=== PATIENT | female | born 1960 | race Caucasian/White ===

== ENCOUNTER → 2020-01-14 13:58 | Outpatient (BNVA) | payer BC, SELFPAY | PROVIDERS: Visit Provider Specialist | DX: G40.909 Epilepsy, unspecified, not intractable, without status epilepticus (principal); G24.9 Dystonia, unspecified | CPT/HCPCS: 99203 ==

== ENCOUNTER → 2020-01-22 09:56 | Outpatient (BNVA) | payer BC, SELFPAY | PROVIDERS: PCP Nurse Practitioner Family; Visit Provider Specialist | DX: G56.21 Lesion of ulnar nerve, right upper limb (principal) | CPT/HCPCS: 95910 ==

== ENCOUNTER → 2020-03-11 11:02 | Outpatient (BNVA) | payer BC, SELFPAY | PROVIDERS: PCP Nurse Practitioner Family; Visit Provider Specialist | DX: G56.21 Lesion of ulnar nerve, right upper limb (principal); M79.641 Pain in right hand | CPT/HCPCS: 99213 ==